=== PATIENT | female | born 1975 | race Caucasian/White ===

== ENCOUNTER → 2018-01-17 | Outpatient (CLI) | payer BC ==
--- NOTE | 2018-01-17 16:24 | CT ---
EXAMINATION TYPE: CT abdomen pelvis wo con DATE OF EXAM: 01/17/2018 COMPARISON: NONE HISTORY: Left side flank pain and hematuria. CT DLP: 948 mGycm Automated exposure control for dose reduction was used. TECHNIQUE: Helical acquisition of images from the lung bases through the pelvis. FINDINGS: Lack of intravenous contrast could compromise sensitivity. Small left inguinal hernia conta ins fat. LUNG BASES: No significant abnormality is appreciated. AORTA: No significant abnormality is appreciataed. LIVER/GB: Low-attenuation within the gallbladder suggests known, no evident liver abnormality. PANCREAS: No significant abnormality is seen. SPLEEN: No significant abnormality is seen. ADRENALS: No significant abnormality is seen. KIDNEYS: Question findings of medullary sponge kidney with increased attenuation centrally, there is a punctate calcification present at the lower pole left kidney measuring only approximately 1 mm, no definite ureteral calculus. REPRODUCTIVE ORGANS: No significant abnormality is seen. URINARY BLADDER: No significant abnormality is seen. BOWEL: Retained fecal debris present throughout most of the distribution of the colon, there is dive rticular change. Surgical clips present at the level of the appendix, the appendix is not seen. FREE AIR: No Free Air is visible. ASCITES: None visible. PELVIC ADENOPATHY: None visualized. RETROPERITONEAL ADENOPATHY: No Retroperitoneal Adenopathy visible. OSSEOUS STRUCTURES: No significant abnormality is seen. IMPRESSION: CORRELATE FOR FECAL STASIS. DIVERTICULOSIS. 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 NONCONTRAST EXAM. ADDITIONAL FINDINGS ABOVE. POSTOP CHANGES.
== END | disposition home or self-care (01) ==
LOC: RADCTMAIN 14:47
PROVIDERS: ATTEND Physician Assistant
DX: K57.90 Diverticulosis of intestine, part unspecified, without perforation or abscess without bleeding (principal); K56.41 Fecal impaction; R31.9 Hematuria, unspecified; Z98.890 Other specified postprocedural states
CPT/HCPCS: 74176

== ENCOUNTER 2018-06-26 19:05 | Emergency (ER) | payer OTHER ==
[2018-06-26] MEDS ORDERED: DIPH,PERTUS(ACELL)TETVAC-LF 0.5 ML VIAL IM ONE (19:08)
[2018-06-26] MEDS ORDERED: SODIUM CHLORIDE 0.9% 1,000 ML IV STA (19:08)
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
[2018-06-26 19:23] LABS: Basophils % (A) 0 %; Eosinophils # (A) 0.3 k/uL (0-0.7); Eosinophils % (A) 7 %; HCT 37.6 % (34.0-46.0); HGB 12.1 gm/dL (11.4-16.0); Lymphocytes # (A) 1.8 k/uL (1.0-4.8); Lymphocytes % (A) 44 %; MCHC 32.2 g/dL (31.0-37.0); MCV 86.9 fL (80.0-100.0); Mean Platelet Volume 7.8; Monocytes # (A) 0.2 k/uL (0-1.0); Monocytes % (A) 5 %; Neutrophils # (A) 1.7 k/uL (1.3-7.7); Neutrophils % (A) 42 %; Platelet Count 196 k/uL (150-450); RBC 4.33 m/uL (3.80-5.40); RDW 13.6 % (11.5-15.5); WBC 4.2 k/uL (3.8-10.6)
--- NOTE | 2018-06-26 19:30 | XR ---
EXAMINATION TYPE: XR tibia fibula LT DATE OF EXAM: 06/26/2018 COMPARISON: NONE HISTORY: Leg pain TECHNIQUE: 3 views FINDINGS: Tibia and fibula appear intact. I see no fracture nor dislocation. IMPRESSION: Negative left tibia and fibula exam.
--- NOTE | 2018-06-26 19:31 | XR ---
EXAMINATION TYPE: XR pelvis AP view DATE OF EXAM: 06/26/2018 COMPARISON: NONE HISTORY: Pain TECHNIQUE: Single view FINDINGS: Pelvic ring is intact. Proximal femurs and hip joints appear normal. Sacroiliac joints appe ar normal. IMPRESSION: Normal pelvis
--- NOTE | 2018-06-26 19:32 | XR ---
EXAMINATION TYPE: XR chest 1V portable DATE OF EXAM: 06/26/2018 COMPARISON: NONE HISTORY: Chest pain TECHNIQUE: Single frontal view of the chest is obtained. FINDINGS: Heart and mediastinum are normal. Lungs are clear. There is no sign of pleural effusion or pneumothorax. I see no rib fracture. There are chest leads. Bony thorax appears intact. IMPRESSION: Normal chest
[2018-06-26 19:33] LABS: INR 1.1 (<1.2); Partial Thromboplastin Time 22.1 sec (22.0-30.0); Prothrombin Time 10.7 sec (9.0-12.0)
[2018-06-26 19:33] LABS: Glucose,Whole Blood 125 mg/dL (75-99)
[2018-06-26 19:38] LABS: ALT 23 U/L (9-52); AST 19 U/L (14-36); Albumin 3.9 g/dL (3.5-5.0); Alcohol <10 mg/dL; Alkaline Phosphatase 74 U/L (38-126); Amylase 64 U/L (30-110); Anion Gap 9 mmol/L; Blood Urea Nitrogen 14 mg/dL (7-17); Calcium 9.2 mg/dL (8.4-10.2); Carbon Dioxide 23 mmol/L (22-30); Chloride 111 mmol/L (98-107); Glucose 123 mg/dL (74-99); Lipase 112 U/L (23-300); Potassium 3.7 mmol/L (3.5-5.1); Sodium 143 mmol/L (137-145); Total Bilirubin 0.2 mg/dL (0.2-1.3); Total Protein 6.5 g/dL (6.3-8.2)
[2018-06-26 20:04] LABS: Creatine Kinase 104 U/L (30-135)
[2018-06-26 20:17] LABS: Creatine Kinase MB 0.6 ng/mL (0.0-2.4); Troponin I <0.012 ng/mL (0.000-0.034)
[2018-06-26 20:45] LABS: Amorphous Sediment,Urine Rare /hpf; Appearance,Urine Clear (Clear); Bilirubin,Urine Negative (Negative); Blood,Urine Moderate (Negative); Color,Urine Yellow; Glucose,Urine (UA) Negative (Negative); Hyaline Casts,Urine 2 /lpf (0-2); Ketones,Urine Negative (Negative); Leukocyte Esterase,Urine Negative (Negative); Mucus,Urine Many /hpf; Nitrite,Urine Negative (Negative); Protein,Urine Trace (Negative); RBC,Urine 3 /hpf (0-5); Specific Gravity,Urine 1.024 (1.001-1.035); Squamous Epithelial Cell,Urine 7 /hpf (0-4); Urobilinogen,Urine <2.0 mg/dL (<2.0); WBC,Urine 2 /hpf (0-5)
--- NOTE | 2018-06-26 20:51 | XR ---
EXAMINATION TYPE: XR foot complete LT DATE OF EXAM: 06/26/2018 COMPARISON: NONE HISTORY: Foot pain TECHNIQUE: 3 views FINDINGS: Metatarsals appear intact. I see no fracture nor dislocation. Joint spaces are normal. IMPRESSION: Negative left foot exam.
--- NOTE | 2018-06-26 20:52 | XR ---
EXAMINATION TYPE: XR ankle complete LT DATE OF EXAM: 06/26/2018 COMPARISON: NONE HISTORY: Ankle pain TECHNIQUE: 3 views FINDINGS: Ankle mortise is anatomic. I see no fracture nor dislocation. Joint spaces are normal. IMPRESSION: Negative left ankle exam.
--- NOTE | 2018-06-26 20:53 | XR ---
EXAMINATION TYPE: XR femur LT DATE OF EXAM: 06/26/2018 COMPARISON: NONE HISTORY: Leg pain TECHNIQUE: 4 views FINDINGS: I see no fracture nor dislocation. Knee joint and hip joint appear intact. Soft tissues kevin ear normal. IMPRESSION: Negative left femur exam.
[2018-06-26 20:55] LABS: Phencyclidine Screen,Urine Not Detected (NotDetected); Urn Cannabinoid Scrn Detected (NotDetected)
[2018-06-26 20:56] LABS: Amphetamine Screen,Urine Not Detected (NotDetected); Barbiturate Screen,Urine Detected (NotDetected); Benzodiazepines Screen,Urine Not Detected (NotDetected); Cocaine Screen,Urine Not Detected (NotDetected); Methadone Screen, Urine Not Detected (NotDetected); Opiate Screen,Urine Detected (NotDetected); Oxycodone Screen, Urine Not Detected (NotDetected); Tricyclic Antidepressant,Urine Not Detected (NotDetected)
[2018-06-26] MEDS ORDERED: ORPHENADRINE 30 MG/ML 2 ML VIAL IVP STA (21:12)
== END 2018-06-26 21:46 | disposition home or self-care (01) ==
LOC: EC 19:05
DX: S81.812A Laceration without foreign body, left lower leg, initial encounter (principal); S80.212A Abrasion, left knee, initial encounter; M25.572 Pain in left ankle and joints of left foot; E06.3 Autoimmune thyroiditis; F17.200 Nicotine dependence, unspecified, uncomplicated; Z79.891 Long term (current) use of opiate analgesic; Z79.899 Other long term (current) drug therapy; Z23 Encounter for immunization; V19.49XA Pedal cycle driver injured in collision with other motor vehicles in traffic accident, initial encounter; Y93.55 Activity, bike riding; Y92.410 Unspecified street and highway as the place of occurrence of the external cause
CPT/HCPCS: 36415; 93005; 86900; 86901; 80053; 82150; 82550; 82553; 83605; 83690; 84484; 85025; 85610; 85730; 86850; 81001; 81025; 80306; 80320; 72170; 73552; 73590; 73610; 73630; 71045; 90715; 99285; 96374; 96361; 90471; J2360

== ENCOUNTER 2018-07-10 17:46 | Emergency (ER) | payer OTHER, BC ==
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
--- NOTE | 2018-07-10 18:39 | XR ---
EXAMINATION TYPE: XR ankle complete LT DATE OF EXAM: 07/10/2018 COMPARISON: NONE HISTORY: Ankle pain TECHNIQUE: 3 views FINDINGS: Ankle mortise is anatomic. I see no fracture nor dislocation. Joint spaces are normal. IMPRESSION: Negative left ankle exam.
--- NOTE | 2018-07-10 18:40 | XR ---
EXAMINATION TYPE: XR tibia fibula LT DATE OF EXAM: 07/10/2018 COMPARISON: NONE HISTORY: Leg pain TECHNIQUE: 4 views FINDINGS: I see no fracture nor dislocation. Knee joint and ankle joint appear intact. IMPRESSION: Negative left tibia and fibula exam.
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
[2018-07-10 20:12] VITALS: BP 116/67; PULSE 54; RESP 18; TEMP 98.1
== END 2018-07-10 20:10 | disposition home or self-care (01) ==
LOC: EC 17:46
DX: S80.12XD Contusion of left lower leg, subsequent encounter (principal); F42.9 Obsessive-compulsive disorder, unspecified; F17.200 Nicotine dependence, unspecified, uncomplicated; Z79.899 Other long term (current) drug therapy; V23.9XXD Unspecified motorcycle rider injured in collision with car, pick-up truck or van in traffic accident, subsequent encounter
CPT/HCPCS: 99283

== ENCOUNTER 2018-09-05 02:07 | Emergency (ER) | payer BC, OTHER ==
[2018-09-05 02:13] VITALS: BP 147/76; PULSE 72; RESP 18; TEMP 97.4
[2018-09-05] MEDS ORDERED: PENICILLIN VK 500MG STARTER 4 TAB BTL PO STA (02:22)
[2018-09-05] MEDS ORDERED: ACET/COD 300 MG/30 MG STARTER PACK 6 TAB BTL PO STA (02:22)
[2018-09-05] MEDS ORDERED: KETOROLAC 30 MG/ML 1 ML VIAL IM STA (02:22)
[2018-09-05] MEDS ORDERED: ONDANSETRON 4 MG ODT STARTER PACK 2 TAB BTL PO STA (02:22)
[2018-09-05] MEDS ORDERED: IBUPROFEN 600 MG STARTER PACK 4 TAB BTL PO STA (02:22)
--- NOTE | 2018-09-05 02:24 | ED ---
ENT HPI - General Chief complaint: Dental/Oral Stated complaint: Dental Pain Time Seen by Provider: 09/05/18 02:16 Source: patient Mode of arrival: ambulatory Limitations: no limitations - History of Present Illness Initial comments: 43-year-old female patient presents to the emergency department today for evaluation of right upper dental pain. Patient states that she has been having pain to the area for the last 3 days. Patient states that the pain is now radiating into her ear and up into her head. States that she has been taking, Motrin without relief of symptoms. She denies any fevers or chills with this. Denies any swelling in her mouth or over her face. Denies any difficulty swallowing or trismus. She states she does not currently have insurance and therefore hasn't seen a dentist. Patient denies any recent rash, shortness breath, chest pain, abdominal pain, nausea, vomiting, diarrhea, constipation, back pain, numbness, tingling, dizziness, weakness, hematuria, dysuria, urinary urgency, urinary frequency, visual changes, or any other complaints. - Related Data Home Medications Medication Instructions Recorded Confirmed FLUoxetine HCL [PROzac] 40 mg PO DAILY 11/03/14 07/10/18 LORazepam [Ativan] 0.5 mg PO BID 11/03/14 07/10/18 Levothyroxine Sodium [Synthroid] 75 mcg PO DAILY 11/03/14 07/10/18 Previous Rx's Medication Instructions Recorded Cyclobenzaprine [Flexeril] 10 mg PO HS #30 tab 06/26/18 Ibuprofen [Motrin] 800 mg PO TID #30 tab 06/26/18 Ibuprofen [Motrin] 600 mg PO Q8HR PRN #30 tab 09/05/18 Penicillin V Potassium [Pen Vee K] 500 mg PO Q6H #40 tablet 09/05/18 Allergies Allergy/AdvReac Type Severity Reaction Status Date / Time No Known Allergies Allergy Verified 09/05/18 02:13 Review of Systems ROS Statement: Those systems with pertinent positive or pertinent negative responses have been documented in the HPI. ROS Other: All systems not noted in ROS Statement are negative. Past Medical History Additional Past Medical History / Comment(s): hashimotos, migraines, OCD History of Any Multi-Drug Resistant Organisms: None Reported Past Surgical History: Appendectomy, Hernia Repair, Tubal Ligation Additional Past Surgical History / Comment(s): palate, right wrist, left hand, D &C, head, Past Psychological History: No Psychological Hx Reported Smoking Status: Current every day smoker Past Alcohol Use History: None Reported Past Drug Use History: Marijuana General Exam Limitations: no limitations General appearance: alert, in no apparent distress, other (This is a well- developed, well-nourished adult female patient in no acute distress. Vital signs upon presentation are temperature 97.4F, pulse 72, respirations 18, blood pressure 147/76, pulse ox 99% on room air.) Eye exam: Present: normal appearance, PERRL, EOMI. Absent: scleral icterus, conjunctival injection, periorbital swelling ENT exam: Present: normal oropharynx, mucous membranes moist, other (Patient has very poor dentition with multiple fractured teeth and extensive dental caries. Patient has gingival erythema and swelling over the right upper dentition. No evidence of drainable abscess.). Absent: normal exam Neck exam: Present: normal inspection. Absent: tenderness, meningismus, lymphadenopathy Respiratory exam: Present: normal lung sounds bilaterally. Absent: respiratory distress, wheezes, rales, rhonchi, stridor Cardiovascular Exam: Present: regular rate, normal rhythm, normal heart sounds. Absent: systolic murmur, diastolic murmur, rubs, gallop, clicks Neurological exam: Present: alert, oriented X3, CN II-XII intact Psychiatric exam: Present: normal affect, normal mood Skin exam: Present: warm, dry, intact, normal color. Absent: rash Course Vital Signs 09/05/18 02:10 Temperature 97.4 F L Pulse Rate 72 Respiratory 18 Rate Blood Pressure 147/76 O2 Sat by Pulse 99 Oximetry Medical Decision Making - Medical Decision Making 43-year-old female patient presents to the emergency department today for evaluation of right upper dental pain. Physical examination does reveal very poor dentition with extensive dental caries, gingival erythema, gingival swelling. Patient will be started on pen VK and given medication for pain control. She is instructed to follow-up with dentistry as soon as possible, she was given resources for patients without insurance. Return parameters were discussed in detail. She verbalizes understanding and agrees with this plan. Disposition Clinical Impression: Dental caries, Fractured tooth Disposition: HOME SELF-CARE Condition: Good Instructions: Dental Caries (ED), Toothache (ED) Additional Instructions: Apply cool compresses to the outside of the face. Take medications as directed. Follow up with dentistry as soon as possible. Return immediately for any new, worsening, or concerning symptoms. Please follow up with the [facility] dental clinic. [address] [place] [address]. Phone number for new patients or [phone] for existing patients. [facility]. Must pay for x-rays then services are free. Call for an appoitnment. Prescriptions: Ibuprofen [Motrin] 600 mg PO Q8HR PRN #30 tab PRN Reason: Pain Penicillin V Potassium [Pen Vee K] 500 mg PO Q6H #40 tablet Is patient prescribed a controlled substance at d/c from ED?: No Referrals: Bobby Velasquez MD [Primary Care Provider] - 1-2 days Time of Disposition: 02:24
== END 2018-09-05 02:40 | disposition home or self-care (01) ==
LOC: EC 02:07
DX: S02.5XXA Fracture of tooth (traumatic), initial encounter for closed fracture (principal); K02.9 Dental caries, unspecified; F42.9 Obsessive-compulsive disorder, unspecified; E06.3 Autoimmune thyroiditis; F17.200 Nicotine dependence, unspecified, uncomplicated; Z79.899 Other long term (current) drug therapy
CPT/HCPCS: 99283; 96372; J1885; S0119

== ENCOUNTER 2019-07-28 15:21 | Emergency (ER) | payer BC, OTHER ==
[2019-07-28 15:28] VITALS: PULSE 87; RESP 18
[2019-07-28] MEDS ORDERED: LIDOCAINE 5% PATCH TOPICAL STA (15:39)
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
[2019-07-28 17:04] VITALS: BP 124/74; TEMP 98
== END 2019-07-28 17:04 | disposition home or self-care (01) ==
LOC: EC 15:21
DX: Z04.1 Encounter for examination and observation following transport accident (principal); F42.9 Obsessive-compulsive disorder, unspecified; F17.200 Nicotine dependence, unspecified, uncomplicated; Z79.899 Other long term (current) drug therapy; Z79.890 Hormone replacement therapy
CPT/HCPCS: 71046; 72050; 72170; 99284